=== PATIENT | male | born 1945 | race Caucasian/White ===

== ENCOUNTER 2016-11-18 22:11 | Emergency (ER) | payer OTHER ==
[~2016-11-18] VITALS: Ht 185.4 cm; Wt 108.9 kg
[2016-11-18 22:11] VITALS: BP 139/82; PULSE 70; RESP 20; TEMP 98.1; O2SAT 99
--- NOTE | 2016-11-18 22:15 | NUR ---
Placed in room 06 . Placed on medical assistant internal medicine, blood pressure machine and pulse oximeter. To gown for exam. Side rails up. Report given to ELIZABETH Allison.
--- NOTE | 2016-11-18 22:20 | NUR ---
MD Morgan at bedside examining pt
--- NOTE | 2016-11-18 22:20 | NUR ---
Pt BIB EMS with c/o Right flank pain 8/10 and extremities' discomfort. Pt's reported that pt has h/o seizure and CVA, is quadraplegic at right upper body. Pt noted with sluggish speech and slow to respond. A&Ox4, denies SOB or chestpain, denies N/V/D. Bilateral ankles' 1+ edema noted. Will continue to monitor
[2016-11-18] MEDS ORDERED: NACL 0.9% 1,000 ML IV ONE (22:30)
[2016-11-18] MEDS ORDERED: KETOROLAC TROMETHAMINE 30 MG VIAL IVP ONE (22:30)
[2016-11-18] MEDS ORDERED: POTA-118 PO (22:33)
[2016-11-18] MEDS ORDERED: LEVE250T2 PO (22:33)
[2016-11-18] MEDS ORDERED: WARF1TAB2 PO (22:33)
[2016-11-18] MEDS ORDERED: FLOR.1 PO (22:33)
[2016-11-18] MEDS ORDERED: FINA5TAB3 PO (22:33)
[2016-11-18] MEDS ORDERED: ERGO400C2 PO (22:33)
[2016-11-18] MEDS ORDERED: CEL20 PO (22:33)
--- NOTE | 2016-11-18 22:35 | NUR ---
Medication reconciliation completed with information provided by Patient ,unable to ascertain amount and frequency, only knows medication names, to bring med list in the morning . Any prior medication reconciliation on file was reviewed and corrected.
--- NOTE | 2016-11-18 22:55 | NUR ---
Pt medicated per MD order, family at bedside, will continue to monitor
[2016-11-18 22:56] LABS: BASOPHILS % (AUTO) 0.2 % (0.0-2.0); EOSINOPHILS # (AUTO) 0.2 K/uL (0.0-0.4); EOSINOPHILS % (AUTO) 2.4 % (0.0-4.0); HEMATOCRIT 44.8 % (36-54); HEMOGLOBIN 15.1 g/dL (14.0-18.0); LYMPHOCYTES % (AUTO) 31.8 % (20.5-51.5); MEAN CORPUSCULAR HEMOGLOBIN 31 pg (27-31); MEAN CORPUSCULAR HGB CONC 34 % (32-36); MEAN CORPUSCULAR VOLUME 93 fL (79.0-98.0); MONOCYTES # (AUTO) 0.8 K/uL (0.0-1.0); MONOCYTES % (AUTO) 12.1 % (1.7-9.3); NEUTROPHILS # (AUTO) 3.4 K/uL (1.8-7.7); NEUTROPHILS % (AUTO) 53.5 % (40.0-70.0); PLATELET COUNT (AUTO) 143 K/uL (130-430); RED BLOOD CELL COUNT(AUTO) 4.81 MIL/uL (4.2-6.2); RED CELL DISTRIBUTION WIDTH 12.3 % (9.0-15.0); WHITE BLOOD COUNT (AUTO) 6.4 K/uL (4.8-10.8)
[2016-11-18 23:07] LABS: ANION GAP 10 (5-15); CHLORIDE 104 mmol/L (98-107); CREATININE 1.08 mg/dL (0.55-1.30); GLUCOSE 113 mg/dL (70-99); POTASSIUM 3.4 mmol/L (3.5-5.1); SODIUM SERUM 141 mmol/L (136-145); UREA NITROGEN, BLOOD 14 mg/dL (8-21)
[2016-11-18 23:11] LABS: BILIRUBIN,URINE 1+ (NEGATIVE); BLOOD, URINE NEGATIVE (NEGATIVE); CLARITY/URINE CLEAR (CLEAR); COLOR,URINE YELLOW (YELLOW); GLUCOSE,URINE NEGATIVE (NEGATIVE); KETONES,URINE TRACE (NEGATIVE); LEUKOCYTE ESTERASE ,URINE NEGATIVE (NEGATIVE); NITRITE, URINE NEGATIVE (NEGATIVE); PROTEIN URINE TRACE (NEGATIVE)
[2016-11-18 23:13] LABS: ALANINE AMINOTRANSFERASE 36 U/L (12-78); ALBUMIN 3.4 g/dL (3.4-4.8); ASPARTATE AMINOTRANSFERASE 56 U/L (10-37); TOTAL BILIRUBIN 0.7 mg/dL (0.0-1.0); TOTAL PROTEIN, SERUM 7.9 g/dL (6.4-8.3)
[2016-11-18 23:27] LABS: BACTERIA,URINE RARE /HPF (None Seen); MUCUS,URINE None Seen /LPF (None Seen); RBC,URINE 0-3 /HPF (0-3); WBC,URINE 0-3 /HPF (0-3)
[2016-11-18 23:48] LABS: INR 3.8 (0.80-1.20); PROTHROMBIN TIME 43.3 SECS (9.5-12.5)
[2016-11-19 00:10] VITALS: BP 147/86; PULSE 65; RESP 20; TEMP 97.8; O2SAT 99
--- NOTE | 2016-11-19 00:10 | NUR ---
Patient given written and verbal discharge instructions and verbalizes understanding. ER MD Morgan discussed with patient the results and treatment provided.. Patient in stable condition. ID arm band removed. IV catheter removed intact and dressing applied, no active bleeding. Rx of tramadol given. Patient educated on pain management and to follow up with PMD. Pain Scale 0/10. Opportunity for questions provided and answered.
== END 2016-11-19 00:10 | disposition home or self-care (01) ==
LOC: SED 22:11
DX: S20.20XA Contusion of thorax, unspecified, initial encounter (principal); D68.9 Coagulation defect, unspecified; R03.0 Elevated blood-pressure reading, without diagnosis of hypertension; Z88.7 Allergy status to serum and vaccine; Z86.73 Personal history of transient ischemic attack (TIA), and cerebral infarction without residual deficits; W19.XXXA Unspecified fall, initial encounter; Y93.89 Activity, other specified; Y99.8 Other external cause status; Y92.89 Other specified places as the place of occurrence of the external cause
CPT/HCPCS: 36415; 71250; 80053; 81000; 85025; 85610; 85730; 96361; 96374; 99285; J1885; J7030